=== PATIENT | male | born 1980 | race Caucasian/White ===

== ENCOUNTER 2021-02-20 02:45 | Emergency (ER) | payer SELFPAY ==
[~2021-02-20] VITALS: Ht 188 cm; Wt 83.9 kg
== END 2021-02-20 04:11 | disposition home or self-care (01) ==
LOC: ER 02:45
DX: M19.90 Unspecified osteoarthritis, unspecified site (principal); M79.10 Myalgia, unspecified site; G47.00 Insomnia, unspecified; F17.200 Nicotine dependence, unspecified, uncomplicated
CPT/HCPCS: 99283